=== PATIENT | male | born 1950 | race Two or more races ===

== ENCOUNTER 2024-09-10 16:48 | Emergency (ER) | payer OTHER ==
[~2024-09-10] VITALS: Ht 172.7 cm; Wt 118.0 kg
--- NOTE | 2024-09-10 16:58 | ED.PDOC ---
History of Present Illness HPI Comments 74 year old male MATTIE presents to the ED with chief complaint of generalized weakness. Patient reports that he has been experiencing generalized weakness with associated SOB with exertion for the past 2 weeks along with noting a fever of 102F earlier today. Patient relays that he was taken to urgent care by his and they had called 911 for his concern of generalized weakness. Patient denies any cough, congestion, chest pain, N/V/D, abdominal pain, chills, headache, or dizziness. Patient's vital signs were stable at arrival. Time Seen by MD: 16:55 Reviewed Notes: Nurses Notes, Quotation Clerk Notes, Medications, Allergies Allergies: Coded Allergies: NO KNOWN ALLERGIES (Unverified , 09/10/24) Information Source: Patient, Emergency Med Personnel Mode of Arrival: EMS Severity: Moderate Timing: Weeks Duration: Since onset Prehospital treatment: None Past Medical History PAST MEDICAL HISTORY: GERD, High Lipids Past Medical History (Other): BPH Surgical History: Denies all surgeries Family History Family History: Reviewed,noncontributory to illness Social History Smoker: Non-Smoker Alcohol: Denies ETOH Use Drugs: Denies Drug Use Lives In: Home Constitutional: reports: fatigue, fever, weakness; denies: chills, diaphoresis, malaise, sweats, others EENTM: denies: blurred vision, double vision, ear bleeding, ear discharge, ear drainage, ear pain, ear ringing, eye pain, eye redness, hearing loss, mouth pain, mouth swelling, nasal discharge, nose bleeding, nose congestion, nose pain, photophobia, tearing, throat pain, throat swelling, voice changes, others Respiratory: reports: SOB with excertion; denies: cough, hemoptysis, orthopnea, SOB at rest, shortness of breath, stridor, wheezing, others Cardiovascular: denies: chest pain, dizzy spells, diaphoresis, Dyspnea on exertion, edema, irregular heart beat, left arm pain, lightheadedness, palpitations, PND, syncope, others Gastrointestinal: denies: abdomen distended, abdominal pain, blood streaked bowels, constipated, diarrhea, dysphagia, difficulty swallowing, hematemesis, melena, nausea, poor appetite, poor fluid intake, rectal bleeding, rectal pain, vomiting, others Genitourinary: denies: burning, dysuria, flank pain, frequency, hematuria, incontinence, penile discharge, penile sore, pain, testicle pain, testicle swelling, urgency, others Neurological: denies: dizziness, fainting, headache, left sided numbness, left sided weakness, numbness, paresthesia, pre-existing deficit, right sided numbness, right sided weakness, seizure, speech problems, tingling, tremors, weakness, others Musculoskeletal: denies: back pain, gout, joint pain, joint swelling, muscle pain, muscle stiffness, neck pain, others Integumetry: denies: bruises, change in color, change in hair/nails, dryness, laceration, lesions, lumps, rash, wounds, others Allergic/Immunocompromised: denies: Difficulty Healing, Frequent Infections, Hives, Itching, others Hematologic/Lymphatic: denies: anemia, blood clots, easy bleeding, easy bruising, swollen glands, others Endocrine: denies: excessive hunger, excessive sweating, excessive thirst, excessive urination, flushing, intolerance to cold, intolerance to heat, unexplained weight gain, unexplained weight loss, others Psychiatric: denies: anxiety, bipolar disorder, depression, hopeless, panic disorder, schizophrenia, sleepless, suicidal, others All Other Systems: Reviewed and Negative Physical Exam General Appearance: Moderate Distress (Moderate distress due to generalized weakness concerns.), Obese HEENT: Normal ENT Inspection, PERRL/EOMI Neck: Full Range of Motion, Non-Tender, Normal, Normal Inspection Respiratory: Chest Non-Tender, No Accessory Muscle Use, No Respiratory Distress, Other (Mild rhonchi appreciated right lower lobe.) Cardiovascular: No Edema, No JVD, No Murmur, No Gallop, Normal Peripheral Pulses, Regular Rate/Rhythm Breast Exam: Deferred Gastrointestinal: No Organomegaly, Non Tender, No Pulsatile Mass, Normal Bowel Sounds, Soft Genitalia: Deferred Pelvic: Deferred Rectal: Deferred Extremities: No calf tenderness, Normal capillary refill, Normal inspection, Normal range of motion, Non-tender, No pedal edema Musculoskeletal : Apperance: Normal Neurologic: Alert, No Motor Deficits, Normal Affect, Normal Mood, No Sensory Deficits Cerebellar Function: Normal Reflexes: Normal Skin: Dry, Normal Color, Warm Lymphatic: No Adenopathy Was a procedure done? Was a procedure done?: No Differential Dx Considerations may include: Sepsis, electrolyte abnormality, PE, UTI, acute coronary syndromes X-Ray, Labs, Meds, VS Vital Signs Date Time Temp Pulse Resp B/P (MAP) Pulse Ox O2 Delivery O2 Flow Rate FiO2 09/11/24 00:34 98.2 73 16 134/59 (84) 93 98.2 09/10/24 22:24 97.9 78 17 124/49 (74) 95 97.9 09/10/24 18:00 95 Room Air* 0 21 21 09/10/24 17:40 79 17 95 Room Air 09/10/24 17:40 98.7 79 17 109/57 (74) 95 98.7 09/10/24 17:01 98.8 82 16 130/72 (91) 98 98.8 09/10/24 16:48 80 Lab Test 09/10/24 20:26 09/10/24 18:25 09/10/24 17:29 09/10/24 17:27 Range/Units Troponin I High Sensitivity 4 4 4 </=54 ng/L White Blood Count 16.6 H 4.4-10.8 10^3/uL Red Blood Count 4.95 4.5-5.90 10^6/uL Hemoglobin 14.4 13.5-17.5 g/dL Hematocrit 42.9 41.0-53.0 % Mean Corpuscular Volume 86.6 80.0-100.0 fL Mean Corpuscular Hemoglobin 29.1 28.0-32.0 pg Mean Corpuscular Hemoglobin Concent 33.6 32.0-36.0 g/dL Red Cell Distribution Width 14.6 H 11.8-14.3 % Platelet Count 172 140-450 10^3/uL Mean Platelet Volume 8.3 6.9-10.8 fL Neutrophils (%) (Auto) 37.0-80.0 % Lymphocytes (%) (Auto) 10.0-50.0 % Monocytes (%) (Auto) 0.0-12.0 % Basophils (%) (Auto) 0.0-2.0 % Neutrophils # (Auto) 1.6-8.6 10 ^3/uL Lymphocytes # (Auto) 0.4-5.4 10 ^3/uL Monocytes # (Auto) 0-1.3 10 ^3/uL Differential Total Cells Counted 100.0 100 Neutrophils % (Manual) 77 37.0-80.0 Band Neutrophils % (Manual) 4 Lymphocytes % (Manual) 13 10.0-50.0 Monocytes % (Manual) 6 0-12 Eosinophils % (Manual) 0 0-7 Basophils % (Manual) 0 0.0-2.0 Metamyelocytes % (manual) 0 Myelocytes % (Manual) 0 Promyelocytes % (Manual) 0 Blast Cells % (Manual) 0 Reactive Lymphocytes 0 Platelet Estimate Adequate D-Dimer, Quantitative 1.52 H 0.0-0.49 mg/L FEU Sodium Level 139 136-145 mmol/L Potassium Level 4.3 3.5-5.1 mmol/L Chloride Level 107 98-107 mmol/L Carbon Dioxide Level 23 20-31 mmol/L Anion Gap 9 5-15 Blood Urea Nitrogen 24 H 9-23 mg/dL Creatinine 1.23 0.700-1.30 mg/dL Glomerular Filtration Rate Calc 61 >90 mL/min BUN/Creatinine Ratio 19.5 10.0-20.0 Serum Glucose 113 H 74-106 mg/dL Calcium Level 9.2 8.7-10.4 mg/dL Total Bilirubin 2.1 H 0.2-1.0 mg/dL Aspartate Amino Transferase (AST) 24 13-40 U/L Alanine Aminotransferase (ALT) 31 7-40 U/L Alkaline Phosphatase 82 46-116 U/L B-Type Natriuretic Peptide 135.76 0-100 pg/mL Total Protein 6.8 5.7-8.2 g/dL Albumin 4.3 3.2-4.8 g/dL Lipase 33 12-53 U/L Influenza Type A Antigen Negative Negative Influenza Type B Antigen Negative Negative SARS-CoV-2 Antigen (Rapid) Negative NEGATIVE Test 09/10/24 17:25 Range/Units Lactic Acid Level 1.4 0.4-2.0 mmol/L Current Medications Medications (Trade) Dose Ordered Sig/Stefanie Route Start Time Stop Time Status Last Admin Albuterol (Ventolin Medneb) 2.5 mg ONCE ONCE NEB 09/10/24 17:00 09/10/24 17:10 DC 09/10/24 18:00 Ipratropium [place] (Atrovent Medneb) 0.5 mg ONCE ONCE NEB 09/10/24 17:00 09/10/24 17:10 DC 09/10/24 18:00 Dexamethasone Sodium Phosphate (Decadron Injection) 10 mg ONCE ONCE IM 09/10/24 17:00 09/10/24 17:10 DC 09/10/24 17:21 Ceftriaxone Sodium 50 ml @ 100 mls/hr ONCE ONCE IV 09/10/24 21:45 09/10/24 22:14 DC 09/10/24 22:28 X-Ray, Labs, Meds, VS Comment All studies performed the ED were evaluated by me personally. Patient's laboratories revealed an elevated D-dimer and un-sourced leukocytosis. CT angio of the chest was performed and revealed no pulmonary emboli. Moderate patchy lingular and left lung base ground-glass opacity and atelectasis. Chest x-ray was unremarkable for any acute cardiopulmonary disease. Urine came back confirmation for urinary tract infection which appears to be the cause of the leukocytosis concern. Patient did not want to stay in the facility and I feel he can be managed outpatient. Patient will be given a dose of Lovenox to address his UTI and any intrapulmonary issues. Patient will receive his 1st dose tonight prior to discharge. Time of 1ST Reevaluation: 01:00 Reevaluation 1ST: Improved Consultation: PCP Patient Education/Counseling: Diagnosis, Treatment Family Education/Counseling: Diagnosis, Treatment, No Family Present Departure 1 Departure Time of Disposition: 01:01 Impression: Primary Impression: UTI (urinary tract infection) Disposition: HOME / SELF CARE / HOMELESS Condition: Stable Additional Instructions: Advised patient utilize antibiotics as directed until completion as well as additional medication as needed. Patient should follow up with the primary care provider in approximately five days for re-evaluation. e-Prescriptions Acetaminophen (Acetaminophen) 500 Mg Tab 500 MG PO Q4HP PRN, #30 TAB Prov: MELINDA DALEY PAC 09/11/24 Levofloxacin Hemihydrate (LEVAQUIN 500 MG) 500 Mg Tab 1 TAB PO DAILY, #7 TAB Prov: MELINDA DALEY PAC 09/11/24 Discharged With: Self, Spouse Critical Care Note Critical Care Time?: No Stability Stability form required: No Heart Score Heart Score: Heart Score Response (Comments) Value History N/A 0 EKG N/A 0 Age N/A 0 Risk Factors N/A 0 Troponin N/A 0 Total 0 I personally scribed for MELINDA DALEY PAC ([email or web address]) on 09/10/24 at 16:57. Electronically submitted by Leon Guzmán ([email or web address]). MELINDA DALEY PAC Sep 10, 2024 16:57
[2024-09-10] MEDS: DexAMETHasone SOD PHOS 10MG/1ML VIAL INJ IM ONE (17:21)
[2024-09-10 17:38] LABS: Hematocrit 42.9 % (41.0-53.0); Hemoglobin 14.4 g/dL (13.5-17.5); Mean Corpuscular Hemoglobin 29.1 pg (28.0-32.0); Mean Corpuscular Hgb Conc. 33.6 g/dL (32.0-36.0); Mean Corpuscular Volume 86.6 fL (80.0-100.0); Platelet Count (auto) 172 10^3/uL (140-450); Red Blood Cells 4.95 10^6/uL (4.5-5.90); Red Cell Distribution Width 14.6 % (11.8-14.3); White Blood Cell 16.6 10^3/uL (4.4-10.8)
[2024-09-10 17:42] LABS: Basophils % (manual) 0 (0.0-2.0); Blast Cells 0; Eosinophils % (manual) 0 (0-7); Metamyelocytes % 0; Myelocytes % 0; Promyelocytes % 0; Reactive Lymphocytes 0
[2024-09-10 17:59] LABS: Alanine Aminotransferase 31 U/L (7-40); Albumin 4.3 g/dL (3.2-4.8); Alkaline Phosphatase 82 U/L (46-116); Anion Gap 9 (5-15); Aspartate Aminotransferase 24 U/L (13-40); BUN/Creatinine Ratio 19.5 (10.0-20.0); Calcium 9.2 mg/dL (8.7-10.4); Carbon Dioxide 23 mmol/L (20-31); Chloride 107 mmol/L (98-107); Lipase 33 U/L (12-53); Potassium 4.3 mmol/L (3.5-5.1); Sodium 139 mmol/L (136-145); Total Protein 6.8 g/dL (5.7-8.2)
[2024-09-10] MEDS: IPRATROPIUM BROM 0.5 MG/2.5ML INH SOL NEB ONE (18:00)
[2024-09-10] MEDS: ALBUTEROL SULF 2.5 MG/0.5ML(0.5%) NEB SOLN NEB ONE (18:00)
[2024-09-10 18:09] LABS: Bilirubin, Total 2.1 mg/dL (0.2-1.0); Blood Urea Nitrogen 24 mg/dL (9-23); Glucose 113 mg/dL (74-106)
[2024-09-10 18:13] LABS: COVID19 ANTIGEN SOFIA FIA NEGATIVE (NEGATIVE); Rapid Influenza A Negative (Negative); Rapid Influenza B Negative (Negative)
--- NOTE | 2024-09-10 18:14 | DVH ---
EXAM: XY CHEST PORTABLE Indication: Shortness of breath Technique: Single frontal view of the chest was obtained Comparison: None FINDINGS: Lines and Tubes: None Lungs: No focal consolidation. Pleura: No effusion. No pneumothorax. Cardiomediastinal contours: Unremarkable Bones: No acute osseous abnormality. IMPRESSION: No acute cardiopulmonary disease.
[2024-09-10 18:48] LABS: Band Neutrophils % (manual) 4; Lymphocytes % (manual) 13 (10.0-50.0); Monocytes % (manual) 6 (0-12); Platelet Estimate Adequate
--- NOTE | 2024-09-10 19:01 | ECG ---
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
[2024-09-10] MEDS: cefTRIAXone 1GM/50ML D5W 50 ML IV ONE (22:28)
[2024-09-10] MEDS: IOHEXOL 350 MG/ML 100ML IJ ONE (23:06)
--- NOTE | 2024-09-11 00:14 | DVH ---
CTA Chest with intravenous contrast INDICATION: Elevated D-dimer COMPARISON: None TECHNIQUE: Multidetector spiral CTA of the chest was performed of the chest with intravenous contrast . PULMONARY ANGIOGRAPHY PROTOCOL was utilized using a bolus-tracking technique centered on the main p ulmonary artery. Axial, coronal and sagittal multiplanar and MIP reformats were performed. Radiation Dose : 1. Chest: CTDI volume is 40.98 mGy. Dose-length product is 991.77 mGy*cm The dose indicators for CT are the volume Computed Tomography (CT) Dose Index (CTDIvol) and the Dose Length Product (DLP), and are measured in units of mGy and mGy-cm, respectively. These indicators are not patient dose, but values generated from the CT scanner acquisition factors. The report includes radiation exposure data for exposures received during this examination. Findings: Pulmonary artery: No large central or large segmental pulmonary embolism. The main pulmonary artery measures 2.6 cm and the ascending aorta measures 3.4 cm. Lower neck: Normal thyroid. Lungs: Moderate patchy ground-glass opacity and atelectasis predominantly within the lingula and left lung base. No focal consolidation, pleural effusion or pneumothorax. Heart/Vascular Structures: Normal heart size. No pericardial effusion. Atherosclerotic vascular calci fications. Lymph Nodes: No adenopathy Pleura: No pleural effusion or significant pneumothorax. Musculoskeletal: No acute osseous abnormality. Soft tissues: Normal. Upper abdomen: Small hiatal hernia. Mild bilateral renal atrophy and 2.2 cm left interpolar renal cor tical cyst. Limited portions of the upper abdomen are otherwise unremarkable status post cholecystect hector. IMPRESSION: 1. No pulmonary embolism. 2. Moderate patchy lingular and left lung base ground-glass opacity and atelectasis.
[2024-09-11 00:34] VITALS: BP 134/59; PULSE 73; RESP 16; TEMP 98.2; O2SAT 93
[2024-09-11] MEDS ORDERED: ACET500T58 PO (01:02)
[2024-09-11] MEDS ORDERED: LEVO500T91 PO (01:02)
[2024-09-11] MEDS: levoFLOXacin 250 MG TAB PO ONE (01:37)
== END 2024-09-11 01:45 | disposition home or self-care (01) ==
LOC: EDBD 16:48 → ER 16:52
DX: N39.0 Urinary tract infection, site not specified (principal); K21.9 Gastro-esophageal reflux disease without esophagitis; E78.5 Hyperlipidemia, unspecified; N40.0 Benign prostatic hyperplasia without lower urinary tract symptoms; Z20.822 Contact with and (suspected) exposure to COVID-19
CPT/HCPCS: 36415; 71045; 71275; 80053; 83605; 83690; 83880; 84484; 85007; 85027; 85379; 87426; 87804; 93005; 94640; 96365; 96372; 99285; J0696; J1100; Q9967